=== PATIENT | male | born 1995 | race Asian ===

== ENCOUNTER 2019-10-31 00:55 | Emergency (ER) | payer SELFPAY ==
[~2019-10-31] VITALS: Ht 180.3 cm; Wt 80.7 kg
--- NOTE | 2019-10-31 01:05 | NUR ---
PT CAME IN WITH C/O OF DOG BITE TO BILATERAL HANDS, SMALL PUNCTURE WOUNDS TO PALM OF RIGHT HAND AND AND TOP OF LEFT HAND. NO ACTIVE BLEEDING. ABLE TO MOVE ALL FINGERS, NO DEFORMITIES NOTED. UNSURE OF LAST TETANUS VACCINE. NKA NO MED HX NO MEDS
[2019-10-31 01:09] VITALS: BP 131/80
--- NOTE | 2019-10-31 01:15 | NUR ---
ermd evaluating pt
--- NOTE | 2019-10-31 01:17 | NUR ---
24 YO MALE BIB SELF FOR HUSKY DOG BITE TO LEFT AND RIGHT HAND. PT HAS 3 PUNCTURE WOUNDS TO LEFT PALM AND 3 PUNCTURE WOUNDS TO RIGHT KNUCKLES. PT SAYS HIS PAIN IS 1/10 AND JUST CAME TO THE ER TO GET HANDS CHECKED. PUNCTURE SITES ARE SUPERFICIAL AND NOT BLEEDING. PT HAS FULL RANGE OF MOTION IN BOTH HANDS. RADIAL PULSES ARE EQUAL AND NORMAL. PT DOESNT RECALL HIS LAST TDAP VACCINATION. PT STATES THE DOG IS UP TO DATE ON VACCINATIONS. DENIES FEVER, COUGH, SOB, AND TRAVEL. NO MED HX NO RX NKA
[2019-10-31] MEDS: AMOXIL/CLAVULANATE 875/125 MG 1 TAB PO ONE (01:34)
[2019-10-31 01:45] VITALS: BP 131/80
== END 2019-10-31 01:45 | disposition home or self-care (01) ==
LOC: MED 00:55
DX: S61.452A Open bite of left hand, initial encounter (principal); S61.451A Open bite of right hand, initial encounter; W54.0XXA Bitten by dog, initial encounter; Y93.89 Activity, other specified; Y92.89 Other specified places as the place of occurrence of the external cause; Y99.8 Other external cause status
CPT/HCPCS: 90471; 90715; 99283